=== PATIENT | male | born 1970 | race Caucasian/White ===

== ENCOUNTER → 2019-10-03 15:38 | Outpatient (CLI) | payer OTHER, SELFPAY ==
--- NOTE | ~2019-10-03 | XR_ITS ---
EXAMINATION: XR lumbar spine min 4V DATE: 10/03/2019 15:52 INDICATION: Low back pain TECHNIQUE: Anteroposterior, lateral, and bilateral oblique views of the lumbar spine, and cone-down l ateral view of the lumbosacral junction were obtained. COMPARISON: None. FINDINGS: There is no fracture. The vertebral body heights and alignment are normal. Small degenerati ve osteophytes project from the anterior endplates of multiple vertebral bodies. There is mild loss o f intervertebral disc space height at L5-S1. Mild facet osteoarthritis is noted in the lower lumbar s pine. The bowel gas pattern is normal. IMPRESSION: 1. Mild lumbar spondylosis without acute findings. Reviewed, dictated and finalized at location A. [employer]
== END ==
PROVIDERS: Visit Provider Chiropractor
DX: M47.896 Other spondylosis, lumbar region (principal)
CPT/HCPCS: 72110

== ENCOUNTER 2020-01-04 08:31 | Outpatient (CLI) | payer OTHER, SELFPAY ==
--- NOTE | ~2020-01-04 | MR_ITS ---
EXAMINATION: MR lumbar spine wo con DATE: 01/04/2020 09:20 INDICATION: Lumbar disc herniation with radiculitis following lifting injury a few months prior. TECHNIQUE: Magnetic resonance imaging (MRI) of the lumbar spine was performed without intravenous con trast. Sequences included sagittal T2-weighted FSE, sagittal T2-weighted FS FSE, sagittal T1-weighted FSE, and axial T2-weighted FSE. COMPARISON: None FINDINGS: Alignment is normal. Vertebral body heights are normal. Normal marrow signal. Mild disc height loss at L1-L2. The conus medullaris terminates at L1. There is normal signal in the caudal spinal cord. Pa ravertebral soft tissues are unremarkable. The following disc levels are specifically discussed: T12-L1: Annular fissure and small right paracentral disc protrusion. There is no facet joint osteoart hritis. There is no neural foraminal stenosis. There is mild central canal stenosis. L1-L2: Disc is mildly bulging. There is no facet joint osteoarthritis. There is mild bilateral neural foraminal stenosis. There is mild central canal stenosis. L2-L3: The disc does not extend beyond the endplate margin. There is mild left and minimal right face t joint osteoarthritis. There is no neural foraminal stenosis. There is no central canal stenosis. L3-L4: Disc is minimally bulging with superimposed annular fissure and moderate sized disc extrusion centered slightly lateral to the right neural foramen and which exerts mass effect upon the exiting r ight L3 nerve root. There is mild bilateral facet joint osteoarthritis. There is mild right neural fo raminal stenosis. There is no central canal stenosis. L4-L5: Disc is minimally bulging. There is mild bilateral facet joint osteoarthritis. There is mild l eft and mild to moderate right neural foraminal stenosis. There is no central canal stenosis. L5-S1: The disc does not extend beyond the endplate margin. There is mild to moderate bilateral facet joint osteoarthritis. There is no neural foraminal stenosis. There is no central canal stenosis. IMPRESSION: 1. Mild lumbar spondylosis most notable for a moderate sized right extraforaminal disc extrusion at L 3-L4 which exerts mass effect upon the exiting right L3 nerve root. Reviewed, dictated and finalized at location D. IMPRESSION: 1. Mild lumbar spondylosis most notable for a moderate sized right extraforamin al disc extrusion at L3-L4 which exerts mass effect upon the exiting right L3 n erve root.
== END 2020-01-04 08:32 | disposition home or self-care (01) ==
PROVIDERS: PCP Family Medicine Sports Medicine; Visit Provider Chiropractor
DX: M51.26 Other intervertebral disc displacement, lumbar region (principal); M47.896 Other spondylosis, lumbar region
CPT/HCPCS: 72148